=== PATIENT | male | born 1950 | race Caucasian/White ===

== ENCOUNTER 2022-06-25 11:54 | Observation (INO) ==
[2022-06-25 12:32] LABS: ABS Basophils 0.1 10^3/ul (0-0.2); ABS Eosinophils 0.2 10^3/ul (0-0.6); ABS Monocytes 0.6 10^3/ul (0-0.8); ABS Neutrophils 4.6 10^3/ul (1.5-7.7); Eosinophil % 2.8 %; Hematocrit 35 % (42-52); Hemoglobin 11.4 g/dL (14.0-18.0); Mean Corpuscular HGB Conc 33 g/dL (31-36); Mean Corpuscular Hemoglobin 30 pg (27-31); Mean Corpuscular Volume 92 fL (80-94); Mean Platelet Volume 9.1 fL (7.4-10.4); Nucleated Red Blood Cells % 0.1; Platelet Count 297 10^3/uL (150-450); Red Blood Count 3.81 10^6 /uL (4.18-5.48); Red Cell Distribution Width 14 % (10-15); White Blood Count 7.4 10^3/uL (3.5-10.8)
[2022-06-25 12:53] LABS: Albumin/Globulin Ratio 1.7 (1-3); Calcium 9.3 mg/dL (8.6-10.3); Creatinine, Serum 2.75 mg/dL (0.67-1.17); Globulin 2.4 g/dL (2-4); Total Bilirubin 0.4 mg/dL (0.2-1.0); Total Protein 6.4 g/dL (6.4-8.9); eGFR CKD-EPI 24.2 (>60)
[2022-06-25 12:54] LABS: Potassium 5.1 mmol/L (3.5-5.0)
[2022-06-25 13:50] LABS: High Sensitivity Troponin 1 Hr 10 pg/mL (<20)
[2022-06-25] MEDS ORDERED: NS 0.9% 1000 ml BAG 1,000 ML IV ONE (17:52)
[2022-06-25] MEDS ORDERED: Famotidine IV 10 MG/ML 2 ml VIAL (20 mg) IV SLOW PU ONE (17:53)
[2022-06-25] MEDS ORDERED: Al Hydrox/Mg Hydrox/Simet LIQ 30 ML UDC PO ONE (17:53)
[2022-06-25] MEDS ORDERED: Pantoprazole VIAL 40 MG VIAL IV ONE (18:01)
[2022-06-25 18:03] LABS: Magnesium 2.2 mg/dL (1.9-2.7)
[2022-06-25] MEDS ORDERED: Lidocaine PATCH 5% PATCH TRANSDERM ONE (20:16)
[2022-06-25 20:41] LABS: Calcium 9.1 mg/dL (8.6-10.3); Creatinine, Serum 2.7 mg/dL (0.67-1.17); Potassium 4.5 mmol/L (3.5-5.0); eGFR CKD-EPI 24.7 (>60)
[2022-06-25] MEDS ORDERED: Lactated Ringers 1000 ml BAG 1,000 ML IV ONE (21:08)
[2022-06-26] MEDS ORDERED: Dextrose 50% Syringe 50 ml 25 GM/50 ML SYRINGE IV PUSH PRN (01:47)
[2022-06-26] MEDS ORDERED: Albuterol HFA INHALER 8 gm MDI INH PRN (02:46)
[2022-06-26] MEDS ORDERED: Enoxaparin 30 MG/0.3 ML SYR SUBCUT SCH (03:00)
[2022-06-26 06:15] LABS: Hematocrit 34 % (42-52); Hemoglobin 11.2 g/dL (14.0-18.0); Mean Corpuscular HGB Conc 33 g/dL (31-36); Mean Corpuscular Hemoglobin 30 pg (27-31); Mean Corpuscular Volume 92 fL (80-94); Mean Platelet Volume 9.1 fL (7.4-10.4); Platelet Count 290 10^3/uL (150-450); Red Blood Count 3.71 10^6 /uL (4.18-5.48); Red Cell Distribution Width 15 % (10-15); White Blood Count 6.8 10^3/uL (3.5-10.8)
[2022-06-26 06:30] LABS: Calcium 9.3 mg/dL (8.6-10.3); Creatinine, Serum 2.36 mg/dL (0.67-1.17); Magnesium 2.1 mg/dL (1.9-2.7); Potassium 4.6 mmol/L (3.5-5.0); eGFR CKD-EPI 29.1 (>60)
[2022-06-26] MEDS ORDERED: Al Hydrox/Mg Hydrox/Simet LIQ 30 ML UDC PO PRN (08:18)
[2022-06-26] MEDS ORDERED: Empagliflozin 25 MG TAB PO SCH (09:00)
[2022-06-26 10:16] VITALS: BP 119/68
[2022-06-26] MEDS ORDERED: Al Hydrox/Mg Hydrox/Simet LIQ 30 ML UDC PO ONE (10:33)
[2022-06-26 12:55] LABS: C Reactive Protein 10.6 mg/L (<8.01)
[2022-06-26 13:55] LABS: Erythrocyte Sed Rate 17 mm/Hr (0-19)
== END 2022-06-26 15:15 | disposition home or self-care (01) ==
LOC: EDHOLD 11:54 → ED 11:54 → SUATTDRO 21:22 → MED 23:55
PROVIDERS: ADMIT Hospitalist; ATTEND Internal Medicine